=== PATIENT | female | born 1975 | race African-American/Black ===

== ENCOUNTER 2025-03-02 07:39 | Emergency (ER) | payer OTHER, MEDICAID ==
[~2025-03-02] VITALS: Ht 162.6 cm; Wt 120.0 kg
[2025-03-02 07:42] VITALS: O2SAT 100
[2025-03-02] MEDS: SODIUM CHLORIDE 0.9% 1,000 ML IV ONE (08:38)
[2025-03-02] MEDS: MORPHINE SULFATE 4 MG/ML INJ (FOR IV/IM USE) IV ONE ×2 (08:38→10:22)
[2025-03-02] MEDS: ONDANSETRON HCL 4MG/2ML INJ IV ONE (08:38)
[2025-03-02 08:39] LABS: BASOPHILS % 0.1 % (0.0-2.0); EOSINOPHILS % 0.0 % (0.0-5.0); HEMATOCRIT. 36.5 % (36.0-48.0); HEMOGLOBIN. 11.6 g/dL (12.0-16.0); LYMPHOCYTES % 8.0 % (20.0-50.0); MEAN PLATELET VOLUME 9.8 fl (7.4-10.4); MONOCYTES % 3.3 % (2.0-8.0); NEUTROPHILS % 88.6 % (40.0-76.0); PLATELET 240 x1000/uL (130-400); RED BLOOD CELL COUNT 5.01 mill/uL (4.2-5.4); RED CELL DISTRIBUTION WIDTH 15.4 % (11.6-14.6)
[2025-03-02 08:50] LABS: CLARITY URINE CLOUDY (CLEAR); COLOR URINE DARK YELLOW (YELLOW); GLUCOSE URINE NEGATIVE (NEGATIVE); KETONES URINE 3+ (NEGATIVE); LEUKOCYTE ESTERASE URINE TRACE (NEGATIVE); NITRITE URINE NEGATIVE (NEGATIVE); OCCULT BLOOD URINE 3+ (NEGATIVE); PH URINE 5.5 (4.5-8.0); PROTEIN URINE TRACE (NEGATIVE); SPECIFIC GRAVITY URINE 1.038 (1.005-1.030); UROBILINOGEN URINE 1.0 E.U./dL (0.2-1.0)
[2025-03-02 08:51] LABS: HCG SCREEN NEGATIVE
[2025-03-02 08:54] LABS: CREATININE 0.7 mg/dL (0.6-1.0); UREA NITROGEN BLOOD 6 mg/dL (9-23)
[2025-03-02 08:56] LABS: ASPARTATE AMINOTRANSFERASE 11 IU/L (<34); BILIRUBIN DIRECT 0.3 mg/dL (<=3.0); BILIRUBIN TOTAL 0.6 mg/dL (0.1-1.0); PROTEIN TOTAL 6.8 g/dL (6.0-8.3)
[2025-03-02 09:12] LABS: BACTERIA URINE 1+; RBC URINE 0-2 /hpf (0-2); SQUAMOUS EPITHELIAL CELL URINE 2+ /lpf (RARE/1+); YEAST URINE NONE SEEN
[2025-03-02 14:08] VITALS: BP 178/70; PULSE 68; RESP 14; TEMP 36.6; O2SAT 100
== END 2025-03-02 14:30 | disposition short-term general hospital (02) ==
LOC: ER 07:39 → CANBEDREQ 12:08 → ER 14:30
DX: R10.84 Generalized abdominal pain (principal); I10 Essential (primary) hypertension
CPT/HCPCS: 80076; 80048; 81003; 84703; 83690; 85025; 36415; 96361; 96374; 96375; 96376; 99285; J2405; J2270; J7030; Z7610